=== PATIENT | male | born 2000 | race Caucasian/White ===

== ENCOUNTER 2020-06-06 17:04 | Emergency (ER) | payer OTHER ==
[2020-06-06] MEDS ORDERED: KETOROLAC 30 MG/ML INJ ONE (17:40)
[2020-06-06] MEDS ORDERED: NA CHLORIDE 0.9% 1,000 ML ONE (17:40)
[2020-06-06 18:12] LABS: Absolute Lymphocytes (CBC) 1.6 K/uL (0.7-4.9); Basophils % 0.4 % (0-1.3); Hematocrit 42.5 % (39.6-49.0); Lymphocytes % 21.8 % (15.3-44.8); MPV 9.1 fL (7.6-11.3); RBC Red Blood Cell Count 4.85 M/uL (4.33-5.43)
--- NOTE | 2020-06-06 18:14 | RAD REPORT ---
EXAM DESCRIPTION: Deepti Single View06/06/2020 5:45 pm CLINICAL HISTORY: Chest pain COMPARISON: none FINDINGS: The lungs appear clear of acute infiltrate. The heart is normal size IMPRESSION: No acute abnormalities displayed
[2020-06-06 18:28] LABS: ALT/SGPT 35 U/L (12-78); AST/SGOT 12 U/L (15-37); Albumin 4.6 g/dL (3.4-5.0); Alkaline Phosphatase 57 U/L (45-117); BUN Blood Urea Nitrogen 13 mg/dL (7-18); Bicarbonate 29 mmol/L (21-32); Bilirubin Direct 0.2 mg/dL (0-0.2); Bilirubin Total 0.8 mg/dL (0.2-1.0); Glucose Level 94 mg/dL (74-106); Protein, Total 7.5 g/dL (6.4-8.2); Sodium Level 141 mmol/L (136-145); Troponin (Emerg Dept Use Only) < 0.02 ng/mL (0.0-0.045)
--- NOTE | 2020-06-06 18:44 | EDPHYS ---
Physician Documentation [facility] Name: Dexter Lacey Age: 19 yrs Sex: Male : 2000 Arrival Date: 06/06/2020 Time: 17:10 Bed 17 Private MD: ED Physician Jigar Boogie HPI: 06/06 17:29 This 19 yrs old Male presents to ER via Ambulatory with complaints of pm1 Shortness Of Breath, R Lung Pain. 17:29 The patient has shortness of breath at rest. Onset: The symptoms/episode began/occurred pm1 3 week(s) ago. Duration: The symptoms are intermittent, on and off for 3-4 days. The patient's shortness of breath is aggravated by deep breathing causes right anterior lower rib pain. Associated signs and symptoms: Pertinent negatives: non-productive cough, productive cough, fever, nausea, vomiting. Severity of symptoms: in the emergency department the symptoms are unchanged. The patient has not experienced similar symptoms in the past. negative covid test 1 week ago. Historical: - Allergies: 17:22 No Known Allergies; jd3 - Home Meds: 17:22 None [Active]; jd3 - PMHx: 17:22 None; jd3 - PSHx: 17:22 None; jd3 - Immunization history:: Adult Immunizations up to date. - Social history:: Smoking status: Patient/guardian denies using tobacco, Stopped _ months ago 1.5. ROS: 17:29 Constitutional: Negative for fever, chills, and weight loss, Eyes: Negative for injury, pm1 pain, redness, and discharge, ENT: Negative for injury, pain, and discharge, Neck: Negative for injury, pain, and swelling. 17:29 Abdomen/GI: Negative for abdominal pain, nausea, vomiting, diarrhea, and constipation, Back: Negative for injury and pain, MS/Extremity: Negative for injury and deformity, Skin: Negative for injury, rash, and discoloration, Neuro: Negative for headache, weakness, numbness, tingling, and seizure. 17:29 Cardiovascular: Positive for chest pain, Negative for edema, orthopnea, palpitations. 17:29 Respiratory: Positive for shortness of breath, Negative for cough, sputum production, wheezing. Exam: 17:29 Constitutional: This is a well developed, well nourished patient who is awake, alert, pm1 and in no acute distress. Head/Face: Normocephalic, atraumatic. Chest/axilla: Normal chest wall appearance and motion. Nontender with no deformity. No lesions are appreciated. Cardiovascular: Regular rate and rhythm with a normal S1 and S2. No gallops, murmurs, or rubs. Normal PMI, no JVD. No pulse deficits. Respiratory: Lungs have equal breath sounds bilaterally, clear to auscultation and percussion. No rales, rhonchi or wheezes noted. No increased work of breathing, no retractions or nasal flaring. Abdomen/GI: Soft, non-tender, with normal bowel sounds. No distension or tympany. No guarding or rebound. No evidence of tenderness throughout. Back: No spinal tenderness. No costovertebral tenderness. Full range of motion. Skin: Warm, dry with normal turgor. Normal color with no rashes, no lesions, and no evidence of cellulitis. MS/ Extremity: Pulses equal, no cyanosis. Neurovascular intact. Full, normal range of motion. 17:29 Neuro: Exam negative for acute changes, Orientation: is normal, Mentation: is normal, Motor: is normal, moves all fours, Sensation: is normal, no obvious gross deficits, Gait: is steady, at a normal pace, without difficulty. Vital Signs: 17:22 BP 137 / 88; Pulse 80; Resp 17 S; Temp 98.3(TE); Pulse Ox 99% on R/A; Weight 74.84 kg jd3 (R); Height 6 ft. 3 in. (190.50 cm) (R); Pain 3/10; 18:57 BP 108 / 79; Pulse 89; Resp 16; Pulse Ox 100% on R/A; iw 17:22 Body Mass Index 20.62 (74.84 kg, 190.50 cm) jd3 MDM: 17:13 Patient medically screened. pm1 18:33 Data reviewed: vital signs. pm1 18:33 Data interpreted: Pulse oximetry: on room air is 99 %. Interpretation: normal. pm1 18:36 ED course: Patient initially refused covid test since he had a negative covid test 1 pm1 week ago. Patient now wants to be covid tested at the request of his mother. 18:42 ED course: Marked improvement with toradol. pm1 18:42 Counseling: I had a detailed discussion with the patient and/or guardian regarding: the pm1 historical points, exam findings, and any diagnostic results supporting the discharge/admit diagnosis, lab results, radiology results, the need for outpatient follow up, to return to the emergency department if symptoms worsen or persist or if there are any questions or concerns that arise at home. 06/06 17:19 Order name: Basic Metabolic Panel; Complete Time: 18:33 pm06/06 17:19 Order name: CBC with Diff; Complete Time: 18:21 pm06/06 17:19 Order name: LFT's; Complete Time: 18:33 pm1 06/06 17:19 Order name: PT-INR; Complete Time: 18:27 pm06/06 17:19 Order name: Troponin (emerg Dept Use Only); Complete Time: 18:33 pm1 06/06 17:19 Order name: D-Dimer; Complete Time: 18:27 pm06/06 17:19 Order name: XRAY Chest (1 view); Complete Time: 18:21 pm06/06 17:19 Order name: EKG; Complete Time: 17:21 pm06/06 17:19 Order name: Cardiac monitoring; Complete Time: 17:52 pm06/06 17:19 Order name: EKG - Nurse/Tech; Complete Time: 18:53 pm06/06 17:19 Order name: IV Saline Lock; Complete Time: 17:52 pm06/06 18:35 Order name: COVID-19 pm06/06 17:19 Order name: Labs collected and sent; Complete Time: 17:52 pm06/06 17:19 Order name: O2 Per Protocol; Complete Time: 17:52 pm06/06 17:19 Order name: O2 Sat Monitoring; Complete Time: 17:52 pm1 Administered Medications: 17:51 Drug: TORadol 30 mg Route: IVP; Site: right forearm; jd3 18:58 Follow up: Response: No adverse reaction; Pain is decreased iw 17:52 Drug: NS 0.9% 1000 ml Route: IV; Rate: 1000 ml; Site: right forearm; jd3 18:57 Follow up: IV Status: Completed infusion iw Disposition: 06/07 15:17 Co-signature as Attending Physician, Jigar Boogie MD. rn Disposition: 06/06/20 18:43 Discharged to Home. Impression: Chest pain, unspecified. - Condition is Stable. - Discharge Instructions: Nonspecific Chest Pain. - Prescriptions for Diclofenac Sodium 75 mg Oral Tablet, Delayed Release (E.C.) - take 1 tablet by ORAL route 2 times per day As needed; 30 tablet. - Medication Reconciliation Form, Thank You Letter, Antibiotic Education, Prescription Opioid Use form. - Follow up: Emergency Department; When: As needed; Reason: Worsening of condition. Follow up: Private Physician; When: 2 - 3 days; Reason: Recheck today's complaints, Continuance of care, Re-evaluation by your physician. - Problem is new. - Symptoms have improved. Signatures: Dispatcher [employer] EDMS Anju Dow RN RN iw Nieto, Roman, MD MD rn Marinas, Patrick, JAMES CUSTOMER ASSISTANT pm1 Ludwig Galvan, RN RN jd3 Corrections: (The following items were deleted from the chart) 06/06 18:58 18:43 06/06/2020 18:43 Discharged to Home. Impression: Chest pain, unspecified. iw Condition is Stable. Forms are Medication Reconciliation Form, Thank You Letter, Antibiotic Education, Prescription Opioid Use. Follow up: Emergency Department; When: As needed; Reason: Worsening of condition. Follow up: Private Physician; When: 2 - 3 days; Reason: Recheck today's complaints, Continuance of care, Re-evaluation by your physician. Problem is new. Symptoms have improved. pm1
--- NOTE | 2020-06-06 18:44 | ER ---
Nurse's Notes [facility] Name: Dexter Lacey Age: 19 yrs Sex: Male : 2000 Arrival Date: 06/06/2020 Time: 17:10 Bed 17 Private MD: Diagnosis: Chest pain, unspecified Presentation: 06/06 17:20 Chief complaint: Patient states: "I am having shortness of breath off and on for about jd3 2-3 weeks with chest tightness. it has gotten worse in the last couple of days to the point were my right lung is really hurting me when I take big breaths. I was tested for COVID at the beginning all this and it was negative.". Coronavirus screen: shortness of breath, Client presents with at least one sign or symptom that may indicate coronavirus-19. Standard/surgical mask placed on the client. Provider contacted for isolation considerations. Ebola Screen: Patient negative for fever greater than or equal to 101.5 degrees Fahrenheit, and additional compatible Ebola Virus Disease symptoms. Initial Sepsis Screen: Does the patient meet any 2 criteria? No. Patient's initial sepsis screen is negative. Does the patient have a suspected source of infection? No. Patient's initial sepsis screen is negative. Risk Assessment: Do you want to hurt yourself or someone else? Patient reports no desire to harm self or others. Onset of symptoms was May 16, 2020. 17:20 Method Of Arrival: Ambulatory jd3 17:20 Acuity: RISHABH 3 jd3 Triage Assessment: 17:15 Respiratory: the patient has mild shortness of breath. rb3 18:00 Respiratory: the patient has mild shortness of breath. iw Historical: - Allergies: 17:22 No Known Allergies; jd3 - Home Meds: 17:22 None [Active]; jd3 - PMHx: 17:22 None; jd3 - PSHx: 17:22 None; jd3 - Immunization history:: Adult Immunizations up to date. - Social history:: Smoking status: Patient/guardian denies using tobacco, Stopped _ months ago 1.5. Screenin:15 Abuse screen: Denies threats or abuse. Nutritional screening: No deficits noted. rb3 Tuberculosis screening: No symptoms or risk factors identified. Fall Risk None identified. Assessment: 17:15 General: Appears in no apparent distress. comfortable, Behavior is calm, cooperative. rb3 Pain: Complains of pain in anterior aspect of right upper chest Pain began 2-3 weeks ago. Neuro: Level of Consciousness is awake, alert, obeys commands, Oriented to person, place, time, situation. Cardiovascular: Patient's skin is warm and dry. Rhythm is regular. Respiratory: Airway is patent Respiratory effort is even, unlabored, Respiratory pattern is regular, symmetrical, Breath sounds are clear bilaterally. Respiratory: Reports shortness of breath off and on. Reports discomfort in the right lung when he takes a deep breath. GI: No signs and/or symptoms were reported involving the gastrointestinal system. : No signs and/or symptoms were reported regarding the genitourinary system. Derm: Skin is pink, warm \\T\\ dry. 18:09 Reassessment: Patient appears in no apparent distress at this time. No changes from rb3 previously documented assessment. Vital Signs: 17:22 BP 137 / 88; Pulse 80; Resp 17 S; Temp 98.3(TE); Pulse Ox 99% on R/A; Weight 74.84 kg jd3 (R); Height 6 ft. 3 in. (190.50 cm) (R); Pain 3/10; 18:57 BP 108 / 79; Pulse 89; Resp 16; Pulse Ox 100% on R/A; iw 17:22 Body Mass Index 20.62 (74.84 kg, 190.50 cm) jd3 ED Course: 17:10 Patient arrived in ED. ds1 17:12 Himanshu Dawn, JAMES is PHCP. pm1 17:12 Jigar Boogie MD is Attending Physician. pm1 17:15 Patient has correct armband on for positive identification. Bed in low position. Call rb3 light in reach. Side rails up X 1. Pulse ox on. NIBP on. 17:21 Jaylene Hay, CARLY is Primary Nurse. rb3 17:21 Triage completed. jd3 17:22 Arm band placed on. jd3 17:45 XRAY Chest (1 view) In Process Unspecified. EDMS 17:52 Inserted saline lock: 20 gauge in right forearm, using aseptic technique. Blood jd3 collected. 18:57 No provider procedures requiring assistance completed. IV discontinued, intact, iw bleeding controlled, No redness/swelling at site. Pressure dressing applied. Administered Medications: 17:51 Drug: TORadol 30 mg Route: IVP; Site: right forearm; jd3 18:58 Follow up: Response: No adverse reaction; Pain is decreased iw 17:52 Drug: NS 0.9% 1000 ml Route: IV; Rate: 1000 ml; Site: right forearm; jd3 18:57 Follow up: IV Status: Completed infusion iw Outcome: 18:43 Discharge ordered by MD. pm1 18:57 Discharged to home ambulatory. iw 18:57 Condition: good 18:57 Discharge instructions given to patient, Instructed on discharge instructions, follow up and referral plans. medication usage, Demonstrated understanding of instructions, follow-up care, medications, Prescriptions given X 1. 18:58 Patient left the ED. iw Addendum: 06/11/2020 07:27 Addendum: COVID-19 Result: Negative result given to RN to notify pt. Unable to leave a a5 voice mail due to the number provided was either not a working number, the voice mail has not been set up, or the voice mailbox is full.. 06/12/2020 14:40 Addendum: COVID-19 Result: Negative result given to RN to notify pt. Notified pt of e b negative COVID 19 swab results. Pt advised that even with a negative test result they should remain in isolation until symptom free for 3 days without medication. Pt also advised to return to the ED for worsening symptoms. Signatures: Dispatcher [employer] [facility] WolffKelli ovalle ds1 Anju Dow RN RN iw Ginger Dolan RN RN aa5 Himanshu Dawn, JAMES SENIOR J2EE DEVELOPER pm1 Ludwig Galvan RN RN jRo Jennings Rebecca RN RN rb3
[2020-06-06 19:03] VITALS: TEMP 98.3
[2020-06-06 19:04] VITALS: BP 108/79; O2SAT 100
== END 2020-06-06 18:58 | disposition home or self-care (01) ==
LOC: ER 17:04
DX: R07.9 Chest pain, unspecified (principal); Z20.822 Contact with and (suspected) exposure to COVID-19
CPT/HCPCS: 96361; 93005; 85025; 80048; 36415; 85610; 85379; 80076; 84484; 71045; 96374; 99284; U0002; J7030